=== PATIENT | female | born 1975 | race Caucasian/White ===

== ENCOUNTER 2020-10-11 01:17 | Emergency (ER) | payer OTHER ==
[2020-10-11 02:14] LABS: HEMOGLOBIN 14.3 gm/dl (12.3-15.3); RED BLOOD COUNT 4.57 M/UL (4.00-5.10); WHITE BLOOD COUNT 8.9 K/UL (4.5-11.0)
[2020-10-11 02:46] LABS: BUN/CREATININE RATIO 10 (0-10)
[2020-10-11] MEDS ORDERED: K-DUR TAB 10 M10 MEQ PO (04:09)
== END 2020-10-11 04:46 | disposition home or self-care (01) ==
LOC: ER1 01:17
PROVIDERS: Emergency Medicine
DX: R00.2 Palpitations (principal); E87.6 Hypokalemia; F17.210 Nicotine dependence, cigarettes, uncomplicated; Z88.0 Allergy status to penicillin
CPT/HCPCS: 71045; 80053; 82550; 82553; 83735; 83874; 84439; 84443; 84484; 85025; 93005; 99285

== ENCOUNTER 2021-03-17 12:30 | Emergency (ER) | payer OTHER ==
[~2021-03-17 12:30] MED LIST: K-DUR TAB 10 M10 MEQ PO
[2021-03-17 13:36] LABS: RED BLOOD COUNT 4.52 M/UL (4.00-5.10); WHITE BLOOD COUNT 7.9 K/UL (4.5-11.0)
[2021-03-17 14:05] LABS: BUN/CREATININE RATIO 17 (0-10)
== END 2021-03-17 17:20 | disposition left against medical advice (07) ==
LOC: ER1 12:30
PROVIDERS: Physician Assistant
DX: R00.2 Palpitations (principal); F17.200 Nicotine dependence, unspecified, uncomplicated; Z88.0 Allergy status to penicillin
CPT/HCPCS: 71045; 80053; 82550; 82553; 83874; 84439; 84443; 84484; 85025; 93005; 93242; 99285

== ENCOUNTER → 2021-12-23 | Outpatient (CLI) | payer OTHER | LOC: KOH-I 10:54 | DX: K59.00 Constipation, unspecified (principal); R10.11 Right upper quadrant pain; F41.9 Anxiety disorder, unspecified; R63.5 Abnormal weight gain; R00.2 Palpitations; K76.0 Fatty (change of) liver, not elsewhere classified | CPT/HCPCS: 76705 ==